=== PATIENT | male | born 1945 | race Caucasian/White ===

== ENCOUNTER 2024-08-19 09:28 | Day surgery (SDC) | payer MEDICARE, OTHER ==
[2024-08-19] MEDS ORDERED: Midazolam 1 MG/ML 2 ML SDV IV ONE (09:29)
[2024-08-19] MEDS ORDERED: Sodium Chloride 0.9% 10 ML Syringe IV ONE (09:29)
[2024-08-19] MEDS ORDERED: fentaNYL 100 MCG/2 ML SDV IV ONE (09:29)
[2024-08-19] MEDS ORDERED: Sodium Chloride 0.9% 10 ML Syringe FLUSH PRN (09:30)
[2024-08-19] MEDS ORDERED: Lactated Ringers 1,000 ML IV SCH (09:30)
[2024-08-19] MEDS ORDERED: acetaZOLAMIDE 500 MG Cap.ER PO ONE (11:00)
== END 2024-08-19 12:00 | disposition home or self-care (01) ==
LOC: FB.SDS 09:28
PROVIDERS: ATTEND Ophthalmology
DX: E11.36 Type 2 diabetes mellitus with diabetic cataract (principal); H25.013 Cortical age-related cataract, bilateral; I10 Essential (primary) hypertension; E78.5 Hyperlipidemia, unspecified; Z87.891 Personal history of nicotine dependence; G47.33 Obstructive sleep apnea (adult) (pediatric); Z79.899 Other long term (current) drug therapy
CPT/HCPCS: 66984; J2250; J3010; V2632; 00142; 99100